=== PATIENT | male | born 1985 | race African-American/Black ===

== ENCOUNTER 2016-07-17 09:31 | Emergency (ER) | payer MEDICAID, SELFPAY ==
[~2016-07-17] VITALS: Ht 170.2 cm; Wt 72.6 kg
[2016-07-17] MEDS ORDERED: IBUP200C PO (09:38)
[2016-07-17] MEDS ORDERED: [UNRECOGNIZED DRUG - CODE] PO (09:38)
[2016-07-17] MEDS ORDERED: AZITHROMYCIN 250 MG TAB PO ONE (11:45)
[2016-07-17] MEDS ORDERED: cefTRIAXone SOD 250 MG VIAL (J0696) IM ONE (11:45)
[2016-07-17] MEDS ORDERED: BACT800T5 PO (11:49)
[2016-07-17 11:54] VITALS: BP 128/85
== END 2016-07-17 11:59 | disposition home or self-care (01) ==
LOC: M ED 10:54
DX: N30.90 Cystitis, unspecified without hematuria (principal); F17.200 Nicotine dependence, unspecified, uncomplicated; Z88.8 Allergy status to other drugs, medicaments and biological substances
CPT/HCPCS: 81001; 87086; 87491; 87591; 96372; 99283; J0696